=== PATIENT | male | born 1980 | race Caucasian/White ===

== ENCOUNTER 2023-03-17 17:12 | Inpatient (IN) | payer OTHER ==
[~2023-03-17] VITALS: Ht 182.9 cm; Wt 94.8 kg
[2023-03-17 17:31] VITALS: BP_SYST 124
[2023-03-17] MEDS ORDERED: ACETAMINOPHEN 500 MG TABLET PO ONE (18:45)
[2023-03-17] MEDS ORDERED: IBUPROFEN 600 MG TABLET PO ONE (18:45)
[2023-03-17] MEDS ORDERED: DICYCLOMINE HCL 10 MG/5 ML SOLUTION PO ONE (18:45)
[2023-03-17 19:05] LABS: HEMATOCRIT 38.7 % (36-54); HEMOGLOBIN 13.6 g/dL (14.0-18.0); MEAN CORPUSCULAR HEMOGLOBIN 33 pg (27-31); MEAN CORPUSCULAR HGB CONC 35 % (32-36); MEAN CORPUSCULAR VOLUME 93 fL (79.0-98.0); PLATELET COUNT (AUTO) 281 K/uL (130-430); RED BLOOD CELL COUNT(AUTO) 4.17 MIL/uL (4.2-6.2); RED CELL DISTRIBUTION WIDTH 12.6 % (9.0-15.0); WHITE BLOOD COUNT (AUTO) 22.9 K/uL (4.8-10.8)
[2023-03-17] MEDS ORDERED: NACL 0.9% 2,000 ML IV ONE (19:15)
[2023-03-17] MEDS ORDERED: MORPHINE 4 MG INJ. 4 MG/ML VIAL IVP ONE (19:15)
[2023-03-17] MEDS ORDERED: PIPERACILLIN/TAZO 3.375 GM in NS 50 ML IV ONE (19:15)
[2023-03-17 19:32] LABS: CALCIUM 8.9 mg/dL (8.4-11.0); CREATININE 0.71 mg/dL (0.55-1.30)
[2023-03-17 19:34] LABS: BAND % (MANUAL) 4 % (0-6); BASOPHILS % (MANUAL) 0 % (0-2); EOSINOPHILS % (MANUAL) 0 % (0-7); LYMPHOCYTES % (MANUAL) 4 % (20-46); MONOCYTES % (MANUAL) 7 % (0-11)
[2023-03-17] MEDS ORDERED: D5/0.45 NS 1,000 ML IV SCH (19:45)
[2023-03-17] MEDS ORDERED: ONDANSETRON HCL 4 MG/2 ML VIAL IVP PRN (19:45)
[2023-03-17] MEDS ORDERED: ACETAMINOPHEN 325 MG SUPP.RECT RC PRN (19:45)
[2023-03-17] MEDS ORDERED: PIPERACILLIN/TAZO 3.375/DEX-IS 50 ML IV SCH (20:00)
[2023-03-17] MEDS ORDERED: PIPERACILLIN/TAZOBACTAM 3.375 GM/VIAL (ZOSYN) IV ONE (20:23)
[2023-03-17] MEDS ORDERED: POTASSIUM CHLORIDE 40 MEQ in D5W 250 ML IV SCH (21:00)
[2023-03-17] MEDS ORDERED: KCL 20 mEq in 100 mL (PREMIX) 100 ML IV ONE ×4 (22:15)
[2023-03-17 22:34] LABS: BLOOD, URINE NEGATIVE (NEGATIVE); CLARITY/URINE CLEAR (CLEAR); GLUCOSE,URINE TRACE (NEGATIVE); KETONES,URINE 3+ (NEGATIVE); LEUKOCYTE ESTERASE ,URINE NEGATIVE (NEGATIVE); NITRITE, URINE NEGATIVE (NEGATIVE); PROTEIN URINE 2+ (NEGATIVE)
[2023-03-17 22:42] LABS: COLOR,URINE AMBER (YELLOW); UROBILINOGEN,URINE >=8 (0.2-1.0)
[2023-03-17 22:43] LABS: BILIRUBIN,URINE 1+ (NEGATIVE)
[2023-03-17 22:44] LABS: BACTERIA,URINE FEW /HPF (None Seen); MUCUS,URINE None Seen /LPF (None Seen); RBC,URINE NONE SEEN /HPF (0-3); WBC,URINE 0-3 /HPF (0-3)
[2023-03-18] VITALS (10 sets, daily range): BP systolic 124–136
[2023-03-18] MEDS ORDERED: KCL 20 mEq in 100 mL (PREMIX) 100 ML IV ONE ×2 (00:45→01:27)
[2023-03-18] MEDS: D5LR 1,000 ML IV SCH ×3 (02:24→20:45)
[2023-03-18] MEDS ORDERED: PIPERACILLIN/TAZOBACTAM 3.375 GM/VIAL (ZOSYN) IV ONE (03:52)
[2023-03-18] MEDS: PIPERACILLIN/TAZO 3.375/DEX-IS 50 ML IV SCH ×4 (04:32→21:44)
[2023-03-18 05:53] LABS: BASOPHILS % (AUTO) 0.1 % (0.0-2.0); EOSINOPHILS # (AUTO) 0.1 K/uL (0.0-0.4); EOSINOPHILS % (AUTO) 0.3 % (0.0-4.0); HEMOGLOBIN 12.1 g/dL (14.0-18.0); LYMPHOCYTES # (AUTO) 1.1 K/uL (1.0-5.5); LYMPHOCYTES % (AUTO) 5.5 % (20.5-51.5); MEAN CORPUSCULAR HEMOGLOBIN 32 pg (27-31); MEAN CORPUSCULAR HGB CONC 35 % (32-36); MEAN CORPUSCULAR VOLUME 93 fL (79.0-98.0); MONOCYTES # (AUTO) 1.8 K/uL (0.0-1.0); MONOCYTES % (AUTO) 9.1 % (1.7-9.3); PLATELET COUNT (AUTO) 253 K/uL (130-430); RED BLOOD CELL COUNT(AUTO) 3.76 MIL/uL (4.2-6.2); RED CELL DISTRIBUTION WIDTH 12.5 % (9.0-15.0); WHITE BLOOD COUNT (AUTO) 20.1 K/uL (4.8-10.8)
[2023-03-18] MEDS ORDERED: PIPERACILLIN/TAZO 3.375/DEX-IS 50 ML IV SCH (06:00)
[2023-03-18 06:02] LABS: INR 1.1 (0.80-1.20); PROTHROMBIN TIME 11.4 SECS (9.5-12.5)
[2023-03-18 06:09] LABS: ALBUMIN 2.5 g/dL (3.4-4.8); CALCIUM 7.7 mg/dL (8.4-11.0); CREATININE 0.67 mg/dL (0.55-1.30); TOTAL BILIRUBIN 0.6 mg/dL (0.0-1.0)
[2023-03-18] MEDS ORDERED: NS IRRIG SOLN 1000 ML IR ONE (16:40)
[2023-03-18] MEDS ORDERED: BUPIVACAINE /PF 0.25% 30 ML VIAL INJ ONE (16:40)
[2023-03-18] MEDS ORDERED: PROPOFOL 200MG/ 20ML VIAL (DIPRIVAN) IV ONE (16:40)
[2023-03-18] MEDS ORDERED: HYDROmorphone 2 MG/ML VIAL ONE (16:40)
[2023-03-18] MEDS ORDERED: NEOSTIGMINE METHYLSULFATE 1 MG/ML, 10 ML VIAL ONE (16:40)
[2023-03-18] MEDS ORDERED: WATER FOR IRRIGATION,STERILE 1,000 ML IRRIG.SOLN IR ONE (16:40)
[2023-03-18] MEDS ORDERED: DEXAMETHASONE SOD PHOSPHATE 4 MG/ML VIAL ONE (16:40)
[2023-03-18] MEDS ORDERED: PIPERACILLIN/TAZOBACTAM 4.5 GM/VIAL (ZOSYN) IV ONE (16:40)
[2023-03-18] MEDS ORDERED: GLYCOPYRROLATE 0.2 MG/ML VIAL ONE (16:40)
[2023-03-18] MEDS ORDERED: NS 1000 ML IV.SOLN IV ONE (16:40)
[2023-03-18] MEDS ORDERED: ROCURONIUM BROMIDE 10 MG/ML (ZEMURON) ONE (16:40)
[2023-03-18] MEDS ORDERED: LR 1,000 ML IV.SOLN IV ONE (16:40)
[2023-03-18] MEDS ORDERED: ONDANSETRON HCL 4 MG/2 ML VIAL ONE (16:40)
[2023-03-18] MEDS ORDERED: MIDAZOLAM HCL 2 MG/2 ML VIAL (VERSED) ONE (16:40)
[2023-03-18] MEDS ORDERED: METOCLOPRAMIDE HCL 10 MG/2 ML VIAL ONE (16:40)
[2023-03-18] MEDS ORDERED: SEVOFLURANE 15 MIN GAS INH ONE (16:40)
[2023-03-18] MEDS ORDERED: FLUMAZENIL 0.1 MG/ML IVP PRN (18:00)
[2023-03-18] MEDS ORDERED: MIDAZOLAM HCL 5 MG/5 ML VIAL IVP PRN (18:00)
[2023-03-18] MEDS ORDERED: ONDANSETRON HCL 4 MG/2 ML VIAL IVP PRN (18:00)
[2023-03-18] MEDS ORDERED: NALOXONE HCL 0.4 MG/ML AMP (NARCAN) IVP PRN ×3 (18:00)
[2023-03-18] MEDS ORDERED: HYDROmorphone 1 MG/ML INJ. CARTRIDGE IVP PRN ×2 (18:00)
[2023-03-18] MEDS ORDERED: METOCLOPRAMIDE HCL 10 MG/2 ML VIAL IVP PRN (18:00)
[2023-03-18] MEDS: MORPHINE 2 MG/ML INJ. SYRINGE IVP PRN (19:15)
[2023-03-18] MEDS: HYDROmorphone 1 MG/ML INJ. CARTRIDGE IVP PRN (21:43)
[2023-03-18] MEDS: NACL 0.9% 1,000 ML IV SCH (21:45)
[2023-03-19] MEDS: PIPERACILLIN/TAZO 3.375/DEX-IS 50 ML IV SCH ×4 (03:13→21:15)
[2023-03-19] MEDS: NACL 0.9% 1,000 ML IV SCH ×3 (03:14→15:43)
[2023-03-19] MEDS: HYDROmorphone 1 MG/ML INJ. CARTRIDGE IVP PRN ×6 (03:38→23:32)
[2023-03-19 07:01] LABS: HEMATOCRIT 36.8 % (36-54); HEMOGLOBIN 12.6 g/dL (14.0-18.0); LYMPHOCYTES # (AUTO) 0.7 K/uL (1.0-5.5); LYMPHOCYTES % (AUTO) 3.5 % (20.5-51.5); MEAN CORPUSCULAR HEMOGLOBIN 33 pg (27-31); MEAN CORPUSCULAR HGB CONC 34 % (32-36); MEAN CORPUSCULAR VOLUME 95 fL (79.0-98.0); MONOCYTES # (AUTO) 1.4 K/uL (0.0-1.0); MONOCYTES % (AUTO) 7.7 % (1.7-9.3); NEUTROPHILS # (AUTO) 16.4 K/uL (1.8-7.7); NEUTROPHILS % (AUTO) 88.8 % (40.0-70.0); PLATELET COUNT (AUTO) 287 K/uL (130-430); RED BLOOD CELL COUNT(AUTO) 3.88 MIL/uL (4.2-6.2); RED CELL DISTRIBUTION WIDTH 12.4 % (9.0-15.0); WHITE BLOOD COUNT (AUTO) 18.5 K/uL (4.8-10.8)
[2023-03-19 07:29] LABS: ALBUMIN 2.2 g/dL (3.4-4.8); CALCIUM 7.8 mg/dL (8.4-11.0); CREATININE 0.65 mg/dL (0.55-1.30); TOTAL BILIRUBIN 0.5 mg/dL (0.0-1.0)
[2023-03-19 07:35] VITALS: BP_SYST 105
[2023-03-19 08:00] VITALS: BP_SYST 105
[2023-03-19 12:00] VITALS: BP_SYST 112
[2023-03-19 16:07] VITALS: BP_SYST 116
[2023-03-19] MEDS: OXYCODONE/ACETAMINOPHEN 5-325 TABLET PO PRN (17:10)
[2023-03-19 17:30] VITALS: BP_SYST 117
[2023-03-19] MEDS ORDERED: BISACODYL 10 MG/SUPPOSITORY RC ONE (18:30)
[2023-03-19 21:00] VITALS: BP_SYST 124
[2023-03-19] MEDS: SIMETHICONE 80 MG TAB.CHEW PO SCH (21:15)
[2023-03-19] MEDS: ONDANSETRON HCL 4 MG/2 ML VIAL IVP PRN (23:32)
[2023-03-20 00:09] VITALS: BP_SYST 119
[2023-03-20] MEDS: D5LR 1,000 ML IV SCH (02:45)
[2023-03-20] MEDS: NACL 0.9% 1,000 ML IV SCH ×5 (03:50→22:18)
[2023-03-20] MEDS: HYDROmorphone 1 MG/ML INJ. CARTRIDGE IVP PRN ×3 (04:32→11:46)
[2023-03-20] MEDS: PIPERACILLIN/TAZO 3.375/DEX-IS 50 ML IV SCH ×4 (04:33→21:19)
[2023-03-20 04:42] LABS: ALBUMIN 2.3 g/dL (3.4-4.8); CREATININE 0.64 mg/dL (0.55-1.30); TOTAL BILIRUBIN 0.4 mg/dL (0.0-1.0)
[2023-03-20 04:55] LABS: BASOPHILS # (AUTO) 0.1 K/uL (0.0-0.2); BASOPHILS % (AUTO) 0.3 % (0.0-2.0); EOSINOPHILS # (AUTO) 0.1 K/uL (0.0-0.4); EOSINOPHILS % (AUTO) 0.8 % (0.0-4.0); HEMATOCRIT 39.9 % (36-54); HEMOGLOBIN 13.7 g/dL (14.0-18.0); LYMPHOCYTES # (AUTO) 1.3 K/uL (1.0-5.5); LYMPHOCYTES % (AUTO) 7.6 % (20.5-51.5); MEAN CORPUSCULAR HEMOGLOBIN 32 pg (27-31); MEAN CORPUSCULAR HGB CONC 34 % (32-36); MEAN CORPUSCULAR VOLUME 95 fL (79.0-98.0); MONOCYTES # (AUTO) 2.3 K/uL (0.0-1.0); MONOCYTES % (AUTO) 12.9 % (1.7-9.3); NEUTROPHILS # (AUTO) 13.7 K/uL (1.8-7.7); NEUTROPHILS % (AUTO) 78.4 % (40.0-70.0); PLATELET COUNT (AUTO) 363 K/uL (130-430); RED BLOOD CELL COUNT(AUTO) 4.22 MIL/uL (4.2-6.2); RED CELL DISTRIBUTION WIDTH 12.9 % (9.0-15.0); WHITE BLOOD COUNT (AUTO) 17.5 K/uL (4.8-10.8)
[2023-03-20 07:40] VITALS: BP_SYST 121
[2023-03-20] MEDS: SIMETHICONE 80 MG TAB.CHEW PO SCH ×3 (08:03→21:00)
[2023-03-20] MEDS ORDERED: POTASSIUM CHLORIDE 20 MEQ TAB.PRT.SR PO ONE (13:30)
[2023-03-20] MEDS: metroNIDAZOLE 500 mg/NS 100 ML IV SCH ×2 (15:31→21:19)
[2023-03-20 16:50] VITALS: BP_SYST 117
[2023-03-20 20:00] VITALS: BP_SYST 124
[2023-03-21] VITALS: BP_SYST 129
[2023-03-21] MEDS: OXYCODONE/ACETAMINOPHEN 5-325 TABLET PO PRN ×2 (01:42→13:53)
[2023-03-21] MEDS: PIPERACILLIN/TAZO 3.375/DEX-IS 50 ML IV SCH ×4 (05:03→22:23)
[2023-03-21] MEDS: metroNIDAZOLE 500 mg/NS 100 ML IV SCH ×3 (05:03→22:23)
[2023-03-21] MEDS: HYDROmorphone 1 MG/ML INJ. CARTRIDGE IVP PRN (05:08)
[2023-03-21 05:12] LABS: BASOPHILS # (AUTO) 0.1 K/uL (0.0-0.2); BASOPHILS % (AUTO) 0.6 % (0.0-2.0); EOSINOPHILS # (AUTO) 0.4 K/uL (0.0-0.4); EOSINOPHILS % (AUTO) 2.9 % (0.0-4.0); HEMATOCRIT 38.4 % (36-54); HEMOGLOBIN 13.1 g/dL (14.0-18.0); LYMPHOCYTES # (AUTO) 1.6 K/uL (1.0-5.5); LYMPHOCYTES % (AUTO) 10.6 % (20.5-51.5); MEAN CORPUSCULAR HEMOGLOBIN 32 pg (27-31); MEAN CORPUSCULAR HGB CONC 34 % (32-36); MEAN CORPUSCULAR VOLUME 95 fL (79.0-98.0); MONOCYTES % (AUTO) 13.1 % (1.7-9.3); NEUTROPHILS % (AUTO) 72.8 % (40.0-70.0); PLATELET COUNT (AUTO) 409 K/uL (130-430); RED BLOOD CELL COUNT(AUTO) 4.05 MIL/uL (4.2-6.2); WHITE BLOOD COUNT (AUTO) 15.1 K/uL (4.8-10.8)
[2023-03-21 05:32] LABS: ALBUMIN 2.2 g/dL (3.4-4.8); CREATININE 0.7 mg/dL (0.55-1.30); TOTAL BILIRUBIN 0.3 mg/dL (0.0-1.0)
[2023-03-21 08:00] VITALS: BP_SYST 124
[2023-03-21] MEDS: SIMETHICONE 80 MG TAB.CHEW PO SCH ×3 (09:40→22:22)
[2023-03-21] MEDS: NACL 0.9% 1,000 ML IV SCH ×2 (09:48→13:10)
[2023-03-21 11:07] VITALS: BP_SYST 120
[2023-03-21 12:33] VITALS: BP_SYST 120
[2023-03-21] MEDS ORDERED: POTASSIUM CHLORIDE 20 MEQ TAB.PRT.SR PO ONE (15:18)
[2023-03-21] MEDS: MORPHINE 2 MG/ML INJ. SYRINGE IVP PRN (15:40)
[2023-03-21 16:05] VITALS: BP_SYST 124
[2023-03-21 20:00] VITALS: BP_SYST 123
[2023-03-22 00:15] VITALS: BP_SYST 133
[2023-03-22 05:06] LABS: BASOPHILS # (AUTO) 0.1 K/uL (0.0-0.2); BASOPHILS % (AUTO) 0.6 % (0.0-2.0); EOSINOPHILS # (AUTO) 0.4 K/uL (0.0-0.4); EOSINOPHILS % (AUTO) 3.2 % (0.0-4.0); HEMATOCRIT 36.9 % (36-54); HEMOGLOBIN 12.5 g/dL (14.0-18.0); LYMPHOCYTES # (AUTO) 1.3 K/uL (1.0-5.5); LYMPHOCYTES % (AUTO) 10.2 % (20.5-51.5); MEAN CORPUSCULAR HEMOGLOBIN 32 pg (27-31); MEAN CORPUSCULAR HGB CONC 34 % (32-36); MEAN CORPUSCULAR VOLUME 95 fL (79.0-98.0); MONOCYTES # (AUTO) 1.3 K/uL (0.0-1.0); MONOCYTES % (AUTO) 10.2 % (1.7-9.3); NEUTROPHILS # (AUTO) 9.9 K/uL (1.8-7.7); NEUTROPHILS % (AUTO) 75.8 % (40.0-70.0); PLATELET COUNT (AUTO) 433 K/uL (130-430); RED CELL DISTRIBUTION WIDTH 12.8 % (9.0-15.0)
[2023-03-22] MEDS: PIPERACILLIN/TAZO 3.375/DEX-IS 50 ML IV SCH ×4 (05:18→20:32)
[2023-03-22 06:03] LABS: CREATININE 0.66 mg/dL (0.55-1.30)
[2023-03-22] MEDS: metroNIDAZOLE 500 mg/NS 100 ML IV SCH ×3 (06:09→22:10)
[2023-03-22 08:00] VITALS: BP_SYST 124
[2023-03-22] MEDS: ONDANSETRON HCL 4 MG/2 ML VIAL IVP PRN (08:35)
[2023-03-22] MEDS: SIMETHICONE 80 MG TAB.CHEW PO SCH ×3 (09:35→20:33)
[2023-03-22 12:14] VITALS: BP_SYST 99
[2023-03-22 12:20] VITALS: BP_SYST 130
[2023-03-22] MEDS ORDERED: POTA-178 PO (13:40)
[2023-03-22] MEDS ORDERED: POTASSIUM CHLORIDE 20 MEQ TAB.PRT.SR PO ONE (14:45)
[2023-03-22 16:38] VITALS: BP_SYST 128
[2023-03-22 20:00] VITALS: BP_SYST 124
[2023-03-22] MEDS: NACL 0.9% 1,000 ML IV SCH (22:13)
[2023-03-23] MEDS: NACL 0.9% 1,000 ML IV SCH ×2 (00:18→16:58)
[2023-03-23 01:06] VITALS: BP_SYST 138
[2023-03-23] MEDS: PIPERACILLIN/TAZO 3.375/DEX-IS 50 ML IV SCH ×2 (03:29→09:08)
[2023-03-23 05:12] LABS: BASOPHILS # (AUTO) 0.1 K/uL (0.0-0.2); BASOPHILS % (AUTO) 0.5 % (0.0-2.0); EOSINOPHILS # (AUTO) 0.3 K/uL (0.0-0.4); EOSINOPHILS % (AUTO) 2.2 % (0.0-4.0); HEMATOCRIT 36.4 % (36-54); HEMOGLOBIN 12.3 g/dL (14.0-18.0); LYMPHOCYTES # (AUTO) 1.3 K/uL (1.0-5.5); LYMPHOCYTES % (AUTO) 8.9 % (20.5-51.5); MEAN CORPUSCULAR HEMOGLOBIN 32 pg (27-31); MEAN CORPUSCULAR HGB CONC 34 % (32-36); MEAN CORPUSCULAR VOLUME 94 fL (79.0-98.0); MONOCYTES # (AUTO) 1.4 K/uL (0.0-1.0); NEUTROPHILS % (AUTO) 79.4 % (40.0-70.0); PLATELET COUNT (AUTO) 456 K/uL (130-430); RED BLOOD CELL COUNT(AUTO) 3.88 MIL/uL (4.2-6.2); RED CELL DISTRIBUTION WIDTH 12.7 % (9.0-15.0); WHITE BLOOD COUNT (AUTO) 15.1 K/uL (4.8-10.8)
[2023-03-23] MEDS: metroNIDAZOLE 500 mg/NS 100 ML IV SCH ×3 (05:29→21:10)
[2023-03-23] MEDS: SIMETHICONE 80 MG TAB.CHEW PO SCH ×3 (09:00→21:00)
[2023-03-23 09:20] LABS: CALCIUM 7.8 mg/dL (8.4-11.0); CREATININE 0.69 mg/dL (0.55-1.30)
[2023-03-23 11:20] VITALS: BP_SYST 126
[2023-03-23] MEDS ORDERED: VITD2000 PO (11:47)
[2023-03-23] MEDS ORDERED: FLUC200T PO (11:49)
[2023-03-23] MEDS ORDERED: METR-343 PO (11:50)
[2023-03-23] MEDS: FLUCONAZOLE 200 mg/ NS 100 ML IV SCH (13:41)
[2023-03-23 15:09] VITALS: BP_SYST 124
[2023-03-23 20:35] VITALS: BP_SYST 126
[2023-03-24 00:09] VITALS: BP_SYST 126
[2023-03-24] MEDS: metroNIDAZOLE 500 mg/NS 100 ML IV SCH ×2 (05:49→09:33)
[2023-03-24 08:10] VITALS: BP_SYST 126
[2023-03-24] MEDS: SIMETHICONE 80 MG TAB.CHEW PO SCH (09:25)
[2023-03-24] MEDS: NACL 0.9% 1,000 ML IV SCH (09:26)
[2023-03-24] MEDS: FLUCONAZOLE 200 mg/ NS 100 ML IV SCH (09:32)
[2023-03-24 10:28] LABS: BASOPHILS % (AUTO) 0.3 % (0.0-2.0); CALCIUM 7.4 mg/dL (8.4-11.0); CREATININE 0.7 mg/dL (0.55-1.30); EOSINOPHILS # (AUTO) 0.3 K/uL (0.0-0.4); EOSINOPHILS % (AUTO) 1.6 % (0.0-4.0); HEMATOCRIT 39.3 % (36-54); HEMOGLOBIN 13.4 g/dL (14.0-18.0); LYMPHOCYTES # (AUTO) 1.2 K/uL (1.0-5.5); LYMPHOCYTES % (AUTO) 7.1 % (20.5-51.5); MEAN CORPUSCULAR HEMOGLOBIN 32 pg (27-31); MEAN CORPUSCULAR HGB CONC 34 % (32-36); MEAN CORPUSCULAR VOLUME 94 fL (79.0-98.0); MONOCYTES # (AUTO) 1.2 K/uL (0.0-1.0); MONOCYTES % (AUTO) 7.2 % (1.7-9.3); NEUTROPHILS # (AUTO) 14.2 K/uL (1.8-7.7); NEUTROPHILS % (AUTO) 83.8 % (40.0-70.0); PLATELET COUNT (AUTO) 490 K/uL (130-430); RED BLOOD CELL COUNT(AUTO) 4.18 MIL/uL (4.2-6.2); WHITE BLOOD COUNT (AUTO) 16.9 K/uL (4.8-10.8)
[2023-03-24 10:32] LABS: ALBUMIN 2.5 g/dL (3.4-4.8); TOTAL BILIRUBIN 0.3 mg/dL (0.0-1.0)
[2023-03-24 11:01] VITALS: BP_SYST 126
[2023-03-24 15:04] VITALS: BP_SYST 128
== END 2023-03-24 14:20 | disposition home health service (06) | DRG 853 ==
LOC: SED 17:12 → STU 19:37 → SMU 03-19 09:55
PROVIDERS: ADMIT Surgery; ATTEND Surgery
PROC: 0DBH4ZZ Excision of Cecum, Percutaneous Endoscopic Approach (ICD-10-PCS; 2023-03-18)
PROC: 0DTJ4ZZ Resection of Appendix, Percutaneous Endoscopic Approach (ICD-10-PCS; principal; 2023-03-18 16:50)
DX: A41.9 Sepsis, unspecified organism (principal); E43 Unspecified severe protein-calorie malnutrition; K35.33 Acute appendicitis with perforation, localized peritonitis, and gangrene, with abscess; K57.92 Diverticulitis of intestine, part unspecified, without perforation or abscess without bleeding; K56.7 Ileus, unspecified; N13.6 Pyonephrosis; Z20.822 Contact with and (suspected) exposure to COVID-19; E87.6 Hypokalemia; K56.41 Fecal impaction; K66.0 Peritoneal adhesions (postprocedural) (postinfection); Z68.28 Body mass index [BMI] 28.0-28.9, adult
CPT/HCPCS: 36415; 71045; 74018; 76376; 80048; 80053; 81000; 83605; 83690; 83735; 84132; 85007; 85025; 85027; 85610-TC; 85730-TC; 86140; 86886; 86900; 86901; 87040; 87070-TC; 87075-TC; 87081; 93005; 94010; 94760; 96365; 99291; C1727; G0378; J0696; J1100; J1170; J1450; J2270; J2405; J2543; J2704; J2710; J2765; J3465; J3480; J3490; J7030; J7060; J7120